=== PATIENT | female | born 1985 | race Caucasian/White ===

== ENCOUNTER 2018-05-27 13:14 | Emergency (ER) | payer SELFPAY ==
[2018-05-27 13:19] VITALS: BP 148/99; PULSE 85; RESP 16; TEMP 37; O2SAT 99
--- NOTE | 2018-05-27 13:44 | ED.GENADUL_ITS ---
Discharge Plan Discharge Details Chief Complaint: RashLesion Clinical Impression: Contact dermatitis Primary Care Provider: Dena Oliver ED Provider: Elise Quispe Disposition Patient Disposition: HOME Condition: Good Home Meds and New Rx's Prescriptions: New prednisone 20 mg tablet 40 mg PO DAILY Qty: 8 RF: 0 Continue levonorgestrel [Mirena] 1 EACH intrauterine device 1 ea IU DIRECTED RF: 0 Discharge Instructions Instructions: Dermatitis (ED) Additional Instructions: Keep hands clean. Try not to itch. You may use hydrocortisone cream to help with itch. Take steroids as prescribed. Please follow up with primary care. I have asked our md do resident urgent care to help arrange for follow up with dermatology, they will contact you regarding appointment. If you develop new/worsening symptoms please seek care urgently again. Referrals: Jose Cunningham MD [MD CONSULTING PHYSICIAN] - 2 weeks (For bilateral palm dermatitis) Medical Decision Making [facility] Narrative Medical decision making narrative: Patient presents today with chief complaint of rash to bilateral palms. On exam, she has a raised pale bump lesions on bilateral palms. This spares her webspaces, rash is not noted elsewhere. No surrounding erythema. No pain. The central area of the palms are clearly excoriated. Dr. Castano also evaluated the patient. He advised this is most consistent with contact dermatitis. Patient did use hydrocortisone cream which did help with symptomatic management although temporary. He advised oral systemic glucocorticoids. Patient will be placed on a burst therapy. Advised follow-up with primary care. Patient also is a patient of Dr. tai. Advise follow-up with him as well. I have asked her md do resident urgent care to help facilitate follow- up with Dr. Cunningham as soon as possible. We discussed new/worsening symptoms and when to seek care urgently once again. UPT was negative. All of her questions and concerns were addressed and she is in agreement with this plan. HPI - General Adult General Date/Time Provider Initiated Documentation: 05/27/18 13:27 . Limitations to Documentation: no limitations . Information obtained by: patient . HPI Narrative: Patient is a 33-year-old female presenting today with chief complaint of rash to bilateral palms. She reports that symptoms have been present for the past month. She reports that she has bumps that are quite itchy on the bilateral palms. Feels that these have been increasing in number. No fevers or chills. Denies any pain. Has not noted any discharge. Denies any difficulty with movement of the hands, no change in sensation. Patient was evaluated by her primary care when symptoms initially began it was advised that her symptoms are most consistent with scabies. Patient reports that she treated herself twice at home with the prescribed medication. Despite this, symptoms have persisted and increased. She denies rash in her mouth, on her feet or elsewhere on her body. States that otherwise she is feeling quite well. She denies any known new contacts. Does not wear gloves at work Related Data Home Medications Medication Instructions Recorded Confirmed levonorgestrel [Mirena] 1 ea IU DIRECTED 12/12/17 05/27/18 Previous Rx's Medication Instructions Recorded prednisone 40 mg PO DAILY #8 tab 05/27/18 Allergies Allergy/AdvReac Type Severity Reaction Status Date / Time tetanus and diphtheria Allergy Severe Trouble Unverified 05/27/18 13:23 toxoids breathing [tetanus & diphtheria toxoids] BCG (Bacillus Allergy Unknown ? REACTION Unverified 05/27/18 13:23 Calmette-Vadim) vacc [From BCG Jennifer Vaccine] hepatitis B virus vaccine Allergy Unknown ? REACTION Unverified 05/27/18 13:23 influenza virus vaccine, Allergy Unknown ? REACTION Unverified 05/27/18 13:23 specific [influenza virus vacc,specific] mumps immune globulin Allergy Unknown ? REACTION Unverified 05/27/18 13:23 Pertussis Vaccines Allergy Unverified 05/27/18 13:23 ADENOVIRUS VACC Allergy Intermediate ? KIND OF Uncoded 05/27/18 13:23 REACTION GUMWEED Allergy Unknown ? REACTION Uncoded 05/27/18 13:23 MENINGOCOCCAL VAC. Allergy Unknown ? REACTION Uncoded 05/27/18 13:23 MYCOBACTERIUM TUB Allergy Unknown PT. COULD Uncoded 05/27/18 13:23 NOT TELL ME WHAT REACTION SHE HAS PARATYPHOID VACC Allergy Unknown ? WHAT Uncoded 05/27/18 13:23 KIND OF A REACTION General Stated Complaint: RashLesion LUCI: 4 Review of Systems Constitutional Reports as per HPI, Denies chills and Denies fever(s) Respiratory Denies cough Musculoskeletal Reports as per HPI Integumentary/Breasts Reports as per HPI Neurologic Reports as per HPI PFSH Family History Mother Personal history of malignant neoplasm Father No problems noted. Grandfather Personal history of malignant neoplasm Heart disease Grandfather No problems noted. Grandmother Personal history of malignant neoplasm Grandmother No problems noted. Medical History History of hidradenitis suppurativa Social History Smoking/Tobacco Use Status: Current every day Surgical History Appendectomy (~04/1998) Excision, Lesion LUMPECTOMY (~01/2014) Tonsillectomy and adenoidectomy (~2001) Exam Const General: cooperative, healthy appearing, comfortable, no acute distress and well developed Nutritional Appearance: average body habitus Orientation: alert Eyes General: appearance normal, both eyes and all related structures Resp Effort & Inspection: normal respiratory effort and able to speak in complete sentences Skin General skin exam: dry skin, no erythema, excoriation(s) (Bilateral palms) and no petechiae Rashes: rash noted (Patient is noted to have pale raised bumps on the palm. They seem to be clustered. Isolated to the palm of the hand. No linear markings. None in the web spacings. No pain on palpation.) Wounds: no wounds Nails: normal Neuro General: alert and awake Cognition: normal cognition Speech: speech normal Gait: normal gait Extrem General: abnormal to inspection (Rashes as above) Psych Appearance: grossly normal Mental Status: mental status grossly normal Speech and Movement: speech and movement normal Mood: congruent mood Affect: normal affect Course Vital Signs Temperature 37 C 05/27/18 13:19 Pulse 85 05/27/18 13:19 Respiratory Rate 16 05/27/18 13:19 Blood Pressure 148/99 H 05/27/18 13:19 Pulse Oximetry 99 05/27/18 13:19 Temperature 37 C 05/27/18 13:19 Pulse 85 05/27/18 13:19 Respiratory Rate 16 05/27/18 13:19 Blood Pressure 148/99 H 05/27/18 13:19 Pulse Oximetry 99 05/27/18 13:19
[2018-05-27 14:25] VITALS: BP 148/99; PULSE 85; RESP 16; TEMP 37; O2SAT 99
--- NOTE | 2018-05-28 09:23 | PDOC.ERCMPRO ---
Care Management Progress Note 05/28-Elise HERRERA requested assistance with a dermatology appt as soon as possible, for dermatitis bilateral palms. Patient has seen Dr. Cunningham in [place] before. Called Dr. Cunningham's office and spoke with Mary COTE. Mary requested the note to be faxed (for which it was) and stated she was going to try and get Jessie in before the end of the week. Dr. Cunningham is off for several weeks after Saturday. Mary stated she thought it would be mid afternoon before she would call back. Mary will either ask for this CM or Vika Ivey CM (signed off to Vika) with update. If not, will have to try and get patient into [facility] [place] [place] dermatology.
--- NOTE | 2018-05-28 09:30 | CMPROGNOTE_ITS ---
Care Management Progress Note 05/28-Elise HERRERA requested assistance with a dermatology appt as soon as possible, for dermatitis bilateral palms. Patient has seen Dr. Cunningham in [place] before. Called Dr. Cunningham's office and spoke with Mary COTE. Mary requested the note to be faxed (for which it was) and stated she was going to try and get Jessie in before the end of the week. Dr. Cunningham is off for several weeks after Saturday. Mary stated she thought it would be mid afternoon before she would call back. Mary will either ask for this CM or Vika Ivey CM (signed off to Vika) with update. If not, will have to try and get patient into [facility] dermatology.
== END 2018-05-27 14:21 | disposition home or self-care (01) ==
PROVIDERS: Emergency Provider Physician Assistant; PCP Family Medicine
DX: L25.9 Unspecified contact dermatitis, unspecified cause (principal)
CPT/HCPCS: 81025; 99283

== ENCOUNTER 2018-06-13 09:30 | Emergency (ER) | payer SELFPAY ==
[2018-06-13 09:35] VITALS: BP 145/82; PULSE 87; RESP 14; TEMP 36.8; O2SAT 98
--- NOTE | 2018-06-13 10:30 | W.ED.GENAD ---
Discharge Plan Disposition Patient Disposition: HOME Condition: Stable Discharge Details Chief Complaint: RashLesion Clinical Impression: Contact dermatitis Primary Care Provider: Dena Oliver ED Provider: Tim Corey Home Meds and New Rx's Prescriptions: New prednisone 20 mg tablet 20 mg PO DAILY Qty: 15 RF: 0 Continue levonorgestrel [Mirena] 1 EACH intrauterine device 1 ea IU DIRECTED RF: 0 Discharge Instructions Instructions: Dermatitis (ED) Additional Instructions: Feel free to return to the emergency department for new or worsening symptoms including rapid spread of your rash, fever chills, or any further concerns. Otherwise care management will attempt to get you a sooner appointment with dermatology. Referrals: Jose Cunningham MD [MD CONSULTING PHYSICIAN] - 2 weeks Discharge Data Discharge Date/Time-TO BE ENTERED AT DEPARTURE: 06/13/18 10:47 Medical Decision Making Patient presenting to the emergency department for bilateral itching rash and peeling to the palms of her hands and somewhat to the dorsal aspect. Patient was initially seen at her primary care office who placed her on medication for suspect of scabies but patient states that this did not help at all and that no one else in the home has similar symptoms. Patient was then seen here in the emergency department a little bit more than 2 weeks ago and was diagnosed with contact dermatitis and placed upon prednisone. Patient states that this initially helped but she was only given a 4 day burst and then the rash returned and continue to be the same. Patient denies any new soaps lotions medications supplements. Physical exam does show raised vesicles on the palmar and dorsal aspect of bilateral hands with some peeling to the palmar aspect of the hand. Patient has slight excoriation on the left upper arm which she states feels more just like dry skin but otherwise has no other physical exam findings. Patient is afebrile and has no systemic symptoms. After review of previous note there was concern for contact dermatitis which given the isolation just to the hands thoroughly discussed with patient any soaps lotions cleaning supplies anything that may be exacerbating this. Patient states that she has previously seen Dr. Cunningham in [place] and they tried to get her an appointment with him after the last emergency visit but was unable to obtain an appointment there. She was referred to [facility]. Patient has been trying to get into dermatology but does not have an appointment until mid to late June. Given that prednisone did help patient I do feel that putting patient on a longer prednisone taper would be beneficial and having care management attempt to get patient a sooner appointment with dermatology for reassessment. After discussion of diagnosis and informing patient to avoid any substance contact even if it seems mild patient agrees with plan of care and states no further needs questions or concerns at this time.. HPI General Mode of arrival: ambulatory. Date/Time Provider Initiated Documentation: 06/13/18 10:05. Limitations to Documentation: no limitations. Information obtained by: patient, RN notes reviewed and old records reviewed. History of Present Illness 33 year old F presents to the emergency department with the chief complaint of Rash on hands, described as moderate, Quality is described as burning and other (itching), and is localized to the upper extremity (bilateral hands). Patient reports no radiation. Patient started experiencing this month(s) (2) and it has been constant. Medication improves symptom(s), (steriods) No exacerbating factors reported . Patient notes no other symptoms.. Patient did receive the following treatments prior to arrival, none Related Data Home Medications Medication Instructions Recorded Confirmed levonorgestrel [Mirena] 1 ea IU DIRECTED 12/12/17 06/13/18 Previous Rx's Medication Instructions Recorded prednisone 20 mg PO DAILY #15 tab 06/13/18 Allergies Allergy/AdvReac Type Severity Reaction Status Date / Time tetanus and diphtheria Allergy Severe Trouble Unverified 06/13/18 09:40 toxoids breathing [tetanus & diphtheria toxoids] BCG (Bacillus Allergy Unknown ? REACTION Unverified 06/13/18 09:40 Calmette-Vadim) vacc [From BCG Jennifer Vaccine] hepatitis B virus vaccine Allergy Unknown ? REACTION Unverified 06/13/18 09:40 influenza virus vaccine, Allergy Unknown ? REACTION Unverified 06/13/18 09:40 specific [influenza virus vacc,specific] mumps immune globulin Allergy Unknown ? REACTION Unverified 06/13/18 09:40 Pertussis Vaccines Allergy Unverified 06/13/18 09:40 ADENOVIRUS VACC Allergy Intermediate ? KIND OF Uncoded 06/13/18 09:40 REACTION GUMWEED Allergy Unknown ? REACTION Uncoded 06/13/18 09:40 MENINGOCOCCAL VAC. Allergy Unknown ? REACTION Uncoded 06/13/18 09:40 MYCOBACTERIUM TUB Allergy Unknown PT. COULD Uncoded 06/13/18 09:40 NOT TELL ME WHAT REACTION SHE HAS PARATYPHOID VACC Allergy Unknown ? WHAT Uncoded 06/13/18 09:40 KIND OF A REACTION General Stated Complaint: RashLesion LUCI: 5 Review of Systems Constitutional Denies body ache(s), Denies chills and Denies fever(s) Eyes Patient Denies itchy eyes Cardiovascular Denies chest pain and Denies dyspnea Respiratory Denies dyspnea Gastrointestinal Denies abdominal pain, Denies nausea and Denies vomiting Integumentary/Breasts Reports as per HPI and Reports rash Neurologic Denies sensory deficit Allergic/Immunologic Denies GI upset with certain foods and Denies itchy eyes PFSH Family History Mother Personal history of malignant neoplasm Father No problems noted. Grandfather Personal history of malignant neoplasm Heart disease Grandfather No problems noted. Grandmother Personal history of malignant neoplasm Grandmother No problems noted. Medical History History of hidradenitis suppurativa Social History Smoking/Tobacco Use Status: Current every day Surgical History Appendectomy (~04/1998) Excision, Lesion LUMPECTOMY (~01/2014) Tonsillectomy and adenoidectomy (~2001) Exam Const General: cooperative, no acute distress and not ill appearing Orientation: alert, awake and oriented x3 HENMT Mouth: moist mucous membranes Resp Effort & Inspection: normal respiratory effort, able to speak in complete sentences and no respiratory distress Cardio Rate: regular rate Rhythm: regular rhythm Skin General skin exam: skin not dry, no petechiae and no purpura Rashes: rashes noted Neuro General: alert, awake, oriented x3, moves all extremities and no focal motor deficits Sensory Exam: no sensory deficits noted Course Vital Signs Temperature 36.8 C 06/13/18 09:35 Pulse 87 06/13/18 09:35 Respiratory Rate 14 06/13/18 09:35 Blood Pressure 145/82 H 06/13/18 09:35 Pulse Oximetry 98 06/13/18 09:35 Temperature 36.8 C 06/13/18 09:35 Pulse 87 06/13/18 09:35 Respiratory Rate 14 06/13/18 09:35 Blood Pressure 145/82 H 06/13/18 09:35 Pulse Oximetry 98 06/13/18 09:35
[2018-06-13] MEDS: predniSONE 20 MG TAB 60 MG PO (10:42)
--- NOTE | 2018-06-13 12:13 | PDOC.ERCMPRO ---
Care Management Progress Note 06/13/18-Pt seen today for hand rash by KENYETTA Hill. CM contacted Dr. lawson's office. His secretary administrative assistant states he is on vacation until 06/23/18. She will have hime review the referral and notes I have faxed her upon his return and put Pt on the cancellation list.
== END 2018-06-13 10:47 | disposition home or self-care (01) ==
PROVIDERS: Emergency Provider Nurse Practitioner Family; PCP Family Medicine
DX: L25.9 Unspecified contact dermatitis, unspecified cause (principal)
CPT/HCPCS: 99283; J7512

== ENCOUNTER 2018-10-10 13:19 | Outpatient (REF) | payer OTHER, SELFPAY ==
--- NOTE | 2018-10-10 12:00 | PAPFT_PTH ---
PATIENT: Jessie Dubon LOC: [facility] U#:[id number] AGE/SX: 33/F ROOM: RE10/10/[address]: Dean Oneill MD : 1985 BED: DIS: 10/10/2018 SPEC #: [id number] RECD: 10/10/18 18:06 STATUS: MARILUZ REMagdalena #: [id number] MEHRAN: 10/10/18 12:[address]: Dean Oneill DEPT: [facility] Cytology RECD BY: Noemí Mcdowell ENTERED: 10/10/18 18:07 SP TYPE: PAPFT OTHR DR: Dena Oliver MD Tissues: 1 - CX/ENDOCX FOR PAP SMEARS Procedures: PAP THIN PREP/UVM Screening HPV DNA PROBE Comments: [id number]
[2018-10-15 10:46] LABS: Chlamydia Result Negative; GC Result Negative; Specimen Description CERVIX
== END 2018-10-10 13:39 ==
LOC: LBN 13:19
PROVIDERS: PCP Family Medicine; Visit Provider Obstetrics & Gynecology
DX: Z11.3 Encounter for screening for infections with a predominantly sexual mode of transmission (principal); Z30.9 Encounter for contraceptive management, unspecified; Z12.4 Encounter for screening for malignant neoplasm of cervix
CPT/HCPCS: 87491; 87591; 88142; 87624

== ENCOUNTER 2018-11-28 00:26 | Outpatient (CLI) | payer OTHER, SELFPAY ==
--- NOTE | 2018-11-28 08:59 | DI.MAMMO_ITS ---
SYMPTOMS/DIAGNOSIS: SCREENING, Z12.31, FAMILY H/O BREAST CA, Z80.3 MAMMOGRAMS: Mammograms were interpreted according to the usual protocol including computer analysis with CAD system, tomosynthesis and C view imaging. This is a baseline examination. There are no priors for comparison. No suspicious masses or microcalcifications are seen. The skin and axillae are unremarkable. IMPRESSION: No evidence for malignancy. Followup according to ACR/ACS guidelines. Category 1. Breast density C. MQSA ASSESSMENT OF FINDINGS: Negative. Category 1. Patient will receive a letter notifying them of these results. Bi-RADS category C. The breasts are heterogeneously dense, which may obscure small masses.
== END 2018-11-28 00:46 ==
PROVIDERS: PCP Family Medicine; Visit Provider Obstetrics & Gynecology
DX: Z12.31 Encounter for screening mammogram for malignant neoplasm of breast (principal); Z80.3 Family history of malignant neoplasm of breast
CPT/HCPCS: 77063; 77067

== ENCOUNTER 2020-04-15 13:29 | Outpatient (CLI) | payer MEDICAID, SELFPAY ==
[2020-04-19 21:51] LABS: SARS-CoV-2 RNA Undetected (Undetected); SARS-CoV-2 Specimen Source Nasopharynx
== END 2020-04-15 13:49 ==
PROVIDERS: PCP Emergency Medicine; Visit Provider Emergency Medicine
DX: Z11.59 Encounter for screening for other viral diseases (principal)
CPT/HCPCS: U0003

== ENCOUNTER 2020-11-14 11:05 | Outpatient (REF) | payer MEDICAID, SELFPAY ==
--- NOTE | 2020-11-14 10:30 | PAPFT_PTH ---
PATIENT: Jessie Dubon LOC: [facility] U#:[id number] AGE/SX: 35/F ROOM: RE11/14/[address]: Andressa Nevarez MD : 1985 BED: DIS: 11/14/2020 SPEC #: [id number] RECD: 11/14/20 13:12 STATUS: MARILUZ REMagdalena #: [id number] MEHRAN: 11/14/20 10:[address]: Andressa Nevarez DEPT: [facility] Cytology RECD BY: Noemí Mcdowell ENTERED: 11/14/20 13:12 SP TYPE: PAPFT OTHR DR: Wali Arreola, DO Tissues: 1 - CX/ENDOCX FOR PAP SMEARS Procedures: PAP THIN PREP/UVM Screening HPV DNA PROBE Comments: [id number]
== END 2020-11-14 11:06 | disposition home or self-care (01) ==
LOC: LBN 11:05
PROVIDERS: PCP Emergency Medicine; Visit Provider Obstetrics & Gynecology
DX: N30.10 Interstitial cystitis (chronic) without hematuria (principal); Z12.4 Encounter for screening for malignant neoplasm of cervix; Z11.51 Encounter for screening for human papillomavirus (HPV); Z87.42 Personal history of other diseases of the female genital tract
CPT/HCPCS: 88142; 87086; 87624

== ENCOUNTER 2020-11-23 01:11 | Outpatient (CLI) | payer MEDICAID, SELFPAY ==
--- NOTE | 2020-11-23 07:30 | DI.US_ITS ---
EXAM: US PELVIS TRANSVAGINAL CLINICAL HISTORY: pelvic pain,R10.2. TECHNIQUE: Transabdominal and transvaginal pelvic ultrasound was performed using standard protocol. COMPARISON: No exams were available for comparison FINDINGS: KIDNEYS: Kidneys are symmetric in size. No evidence of renal calculi. No evidence of hydronephrosis. No renal mass or cyst identified. UTERUS: Position: Anteverted. Size: 7.5 long by 3.7 AP by 5.0 transverse cm Endometrium: 0.4 cm. Normal for patient's menstrual status. There is an IUD which is in good position . Myometrium: Unremarkable. Cervix: Unremarkable. OVARIES: Right: 2.1 x 1.5 x 1.7 cm Cyst or mass: Small functional cysts are present. Left: 2.6 x 1.9 x 1.9 cm Cyst or mass: 1.7 x 1.4 x 1.4 cm functional cyst. DOPPLER: Color: Symmetric and uniform flow to both ovaries. No hyperemia. Duplex: Normal ovarian arterial waveforms visualized. CUL-DE-SAC: Free fluid: Small amount of free fluid in the cul-de-sac. Other: None. IMPRESSION: 1. Normal sonographic appearance of the kidneys. 2. Normal-appearing uterus with endometrial stripe within normal limits. IUD is in good position. 3. Unremarkable bilateral ovaries. 1.7 cm functional left ovarian cyst. DATA REPOSITORY:
== END 2020-11-23 01:31 ==
PROVIDERS: PCP Emergency Medicine; Visit Provider Emergency Medicine
DX: R10.2 Pelvic and perineal pain (principal); Z97.5 Presence of (intrauterine) contraceptive device; N83.202 Unspecified ovarian cyst, left side
CPT/HCPCS: 76830; 76856

== ENCOUNTER 2021-08-27 21:59 | Emergency (ER) | payer MEDICAID, SELFPAY ==
[2021-08-27 22:02] VITALS: BP 162/94; PULSE 89; RESP 18; TEMP 36.5; O2SAT 99
--- NOTE | 2021-08-27 22:08 | ED.GENADUL_ITS ---
Discharge Plan Disposition Patient Disposition: HOME Condition: Good Discharge Details Clinical Impression: Rash, Contact dermatitis Primary Care Provider: Wali Arreola ED Provider: Torsten Da Silva Home Meds and New Rx's Prescriptions: New prednisone 50 MG tablet 50 mg PO DAILY Qty: 5 RF: 0 Continued econazole 1 % cream 1 applic TP DAILY Qty: 15 RF: 0 amitriptyline 10 mg tablet 10 mg PO QHS Qty: 60 RF: 0 Mirena 1 EACH intrauterine device 1 ea IU DIRECTED RF: 0 Discharge Instructions Instructions: Dermatitis (ED) Additional Instructions: At this time your exam shows evidence of mild contact dermatitis. Please take the prednisone as directed. It is been sent to your pharmacy on file. Please also take mzkq-qmi-inveyze loratadine 10 mg 1 tablet daily for the next 3 to 5 days until your symptoms resolve. Please also continue to take your 25 mg of Benadryl every 6-8 hours. Monitor your symptoms closely and look for any potential causative agents for your symptoms. If you notice any worsening of your symptoms, or any new symptoms such as vomiting, diarrhea, fever, chills, shortness of breath, chest pain, numbness, weakness, or fainting , please return immediately to the emergency department for reevaluation. Please follow up with your primary care provider as soon as possible for reassessment and reevaluation. As always, it was a pleasure participating in your medical care today. Referrals: Wali Arreola, [Primary Care Provider] - Medical Decision Making 36-year-old female with a past medical history of multiple reactions to previous vaccines but otherwise no significant other medical history presents today for evaluation of rash. The patient states that for the last 3 to 4 days she has had a mild rash on her neck and ears. It has been itchy in nature. She has been taking Benadryl and using wamg-kzk-lwaigox cortisone 10 cream, this is slightly improved the symptoms but not resolved them. She is uncertain as to the cause, but denies any new lotions, soaps, perfumes, bed sheets, detergents, washing products, food changes, or pets. She is uncertain as to what is causing this. She denies any fever or chills. No mucosal or oral lesions. No other complaints time. No other modifying factors. Exam demonstrates mildly erythematous rash on the back of the neck, easily blanchable. Mild inflammation/irritation of the ears as well. There are 2 earrings, 1 in each ear. Patient states that she has had these in there for forever. Symptoms appear inconsistent with tinea capitis. It does appear sli ghtly concerning for mild contact dermatitis. We will give oral prednisone, recommend continued Benadryl and loratadine. The patient's rash worsens recommend reassessment as there may be a less likely fungal component. I have extensively reviewed the treatment plan and discharge instructions with the patient. I have addressed all patient concerns at this time. The patient was made aware of what symptoms to monitor for that would warrant a return to the emergency department. Discussed the plan with the patient, they demonstrate verbal understanding and agreement with our assessment and plan at this time. The documentation in this chart was dictated using [employer] dictation software. Please excuse any dictation errors. HPI General Date/Time Provider Initiated Documentation: 08/27/21 22:00 . HPI Narrative: 36-year-old female with a past medical history of multiple reactions to previous vaccines but otherwise no significant other medical history presents today for evaluation of rash. The patient states that for the last 3 to 4 days she has had a mild rash on her neck and ears. It has been itchy in nature. She has been taking Benadryl and using mbzm-riq-gmhxdjw cortisone 10 cream, this is slightly improved the symptoms but not resolved them. She is uncertain as to the cause, but denies any new lotions, soaps, perfumes, bed sheets, detergents, washing products, food changes, or pets. She is uncertain as to what is causing this. She denies any fever or chills. No mucosal or oral lesions. No other complaints time. No other modifying factors. Related Data Home Medications Medication Instructions Recorded Confirmed Mirena 1 ea IU DIRECTED 12/12/17 05/04/20 econazole 1 % topical cream 1 applic TP DAILY #15 gm 02/19/20 05/04/20 amitriptyline 10 mg tablet 10 mg PO QHS #60 tab 11/14/20 11/14/20 prednisone 50 mg PO DAILY #5 tab 08/27/21 Previous Rx's Medication Instructions Recorded econazole 1 % topical cream 1 applic TP DAILY #15 gm 02/19/20 amitriptyline 10 mg tablet 10 mg PO QHS #60 tab 11/14/20 prednisone 50 mg PO DAILY #5 tab 08/27/21 Allergies Allergy/AdvReac Type Severity Reaction Status Date / Time tetanus and diphtheria Allergy Severe Trouble Verified 11/08/20 14:52 toxoids breathing [tetanus & diphtheria toxoids] BCG (Bacillus Allergy Unknown ? REACTION Verified 11/08/20 14:52 Calmet[place]-Vadim) vacc [From BCG [place] Vaccine] hepatitis B virus vaccine Allergy Unknown ? REACTION Verified 11/08/20 14:52 influenza virus vaccine, Allergy Unknown ? REACTION Verified 11/08/20 14:52 specific [influenza virus vacc,specific] mumps immune globulin Allergy Unknown ? REACTION Verified 11/08/20 14:52 Pertussis Vaccines Allergy Verified 11/08/20 14:52 ADENOVIRUS VACC Allergy Intermediate ? KIND OF Uncoded 11/08/20 14:52 REACTION GUMWEED Allergy Unknown ? REACTION Uncoded 11/08/20 14:52 MENINGOCOCCAL VAC. Allergy Unknown ? REACTION Uncoded 11/08/20 14:52 MYCOBACTERIUM TUB Allergy Unknown PT. COULD Uncoded 11/08/20 14:52 NOT TELL ME WHAT REACTION SHE HAS PARATYPHOID VACC Allergy Unknown ? WHAT Uncoded 11/08/20 14:52 KIND OF A REACTION General LUCI: 5 Review of Systems All systems reviewed & are unremarkable except as noted in HPI and below PFSH Active Problem List Rash (Acute) Contact dermatitis (Acute) Hydradenitis (Acute) Interstitial cystitis (Acute) Pelvic pain (Acute) Plantar wart of right foot (Acute) Callus of foot (Acute) Bleeding hemorrhoid (Acute) Family history of breast cancer in first degree relative (Acute) Abnormal Pap smear of cervix (Acute) Benign neoplasm (Acute 01/25/14) Depression (Acute) Encounter for insertion of intrauterine contraceptive device (Acute 04/01/13) Smoker (Acute 12/28/13) False labor (Active 02/11/13) Vaginal delivery (Active 02/18/13) Medical History History of hidradenitis suppurativa Surgical History Appendectomy (~04/1998) Excision, Lesion Groin cyst LUMPECTOMY (~01/2014) FROM TONGUE Tonsillectomy and adenoidectomy (~2001) Family History Mother Personal history of malignant neoplasm BREAST/CERVICAL Cancer Father No problems noted. Grandfather Personal history of malignant neoplasm BLADDER/SKIN Heart disease Grandfather No problems noted. Grandmother Personal history of malignant neoplasm BREAST Grandmother No problems noted. Other Family history of breast cancer in first degree relative Social History Smoking/Tobacco Use Status: Current every day Quit status: not considering quitting Smoking risk assessment performed?: Yes Alcohol Intake: never Drug use: Never Counseling given: No Do you feel safe at home: Yes Do you feel safe in your relationship?: Yes Female Reproductive History Menstrual Age of Menarche: 14 control method: progestin IUCD (New Mirena IUD inserted today. LOT#[id number] EXP JANUARY/2021) History History 1 Para 1 Hx # Term Pregnancies Multiple births Hx # Pregnancies Ectopic pregnancies AB induced Hx Number of Living Children AB spontaneous Exam Narrative Exam Narrative: 1.Const: Well-nourished, Well-developed, appearing stated age 2.Eyes: PERRL, no conjunctival injection, and symmetrical lids. 3.ENT: Atraumatic external nose and ears. Moist MM. Neck: Symmetric, trachea midline, No thyromegaly. 4.CVS: +S1/S2, No murmurs or gallops. Peripheral pulses 2+ and equal in all extremities. Brisk capillary refill in all extremities. 5.RESP: Unlabored respiratory effort. Clear to auscultation bilaterally. No wheezes rales or rhonchi 6.GI: Soft, Nontender/Nondistended, No hepatosplenomegaly. No guarding or rebound. 7.MSK: Normocephalic/Atraumatic, Extremities w/o deformity or ttp No cyanosis or clubbing, Normal movement of all extremities 8.Skin: Warm, Dry. Patient demonstrates very mild erythematous slightly irritated rash on the upper neck at the base of the scalp, and mild inflammation of the ears bilaterally. No significant tenderness. No exudate, no warmth to suggest cellulitis or infection. Symptoms appear inconsistent with tinea capitis. It appears more similar to a mild contact dermatitis of unknown etiology. Negative Nikolsky sign. No large vesicles or bulla. No palpable purpura. No oral lesions. No mucosal lesions. No evidence of severe cellulitis. No evidence of vaccine preventable rash. 9.Neuro: executive staff assistant II-XII grossly intact. Sensation grossly intact, no focal neurologic deficits. 10.Psych: (AAO) x3. Appropriate mood and affect
[2021-08-27] MEDS: predniSONE 20 MG TAB 60 MG PO (22:13)
== END 2021-08-27 22:14 | disposition home or self-care (01) ==
PROVIDERS: Emergency Provider Student in an Organized Health Care Education/Training Program; PCP Emergency Medicine
DX: L25.8 Unspecified contact dermatitis due to other agents (principal); L29.8 Other pruritus
CPT/HCPCS: 99283; J7512

== ENCOUNTER 2022-10-07 12:08 | Emergency (ER) | payer MEDICAID, SELFPAY ==
[2022-10-07 12:12] VITALS: BP 158/88; PULSE 95; RESP 18; TEMP 37.1; O2SAT 98
--- NOTE | 2022-10-07 12:39 | W.ED.GENAD ---
Discharge Plan Disposition Patient Disposition: Home Condition: Stable Discharge Details Clinical Impression: Abscess Primary Care Provider: Terrence Moss ED Provider: Noemí Tolbert Home Meds and New Rx's Prescriptions: New doxycycline monohydrate 100 mg tablet 100 mg PO BID Qty: 20 0RF Continued multivitamin with iron [Daily Multiple Vitamins/Iron] Tablet 1 tab PO DAILY Mirena 1 EACH intrauterine device 1 ea IU DIRECTED Discharge Instructions Instructions: Abscess (ED) Additional Instructions: warm compresses antibiotics as prescribed Follow-up with surgery Return earlier should you have fever, chills, spreading redness, or fluctuant abscess to the groin region Referrals: Zac Archer MD [MD CONSULTING PHYSICIAN] - Discharge Data Discharge Date/Time-TO BE ENTERED AT DEPARTURE: 10/07/22 13:05 Medical Decision Making This 37-year-old female presents with abscess in the pelvic region which started approximately 3 days ago and has been draining intermittently Denies any fever or chills states that this has been going on for approximately 3 weeks There is a indurated approximately half inch abscess noted in the perineal region There is no fluctuance and no overlying erythema, I think the risk associated with pain outweighs the benefit of incision and drainage at this time and I think starting her on antibiotics and referring to surgery in the outpatient setting is in the patient's best interest She is placed on emergent referral She will apply warm compresses and be placed on doxycycline She denies any chance of She is discharged home afebrile nontoxic in no acute distress Medical Records Medical records reviewed: Yes I reviewed the patient's medical records. HPI General Date/Time Provider Initiated Documentation: 10/07/22 12:27. HPI Narrative: This 37-year-old female presents with report of abscess in the pelvic region. She states this started 3 weeks ago. She states the pain is getting worse. She states that there has been a little bit of drainage over the course past few days. She denies any fever or chills. She has a history of hidradenitis and has had numerous incision and drainage of abscesses in the past. Denies any history of illicit drug use or diabetes. Has not been on antibiotics for this episode. Related Data Home Medications Medication Instructions Recorded Confirmed levonorgestrel 20 mcg/24 hours (8 1 ea intra-articular DIRECTED 03/22/18 01/15/23 yrs) 52 mg intrauterine device (Mirena) multivitamin with iron (Daily 1 tab PO DAILY 04/27/22 10/07/22 Multiple Vitamins with Iron tablet) doxycycline monohydrate 100 mg 100 mg PO BID #20 tabs 10/07/22 tablet Previous Rx's Medication Instructions Recorded doxycycline monohydrate 100 mg 100 mg PO BID #20 tabs 10/07/22 tablet Allergies Allergy/AdvReac Type Severity Reaction Status Date / Time tetanus and diphtheria Allergy Severe Trouble Verified 10/07/22 12:16 toxoids breathing [tetanus & diphtheria toxoids] BCG (Bacillus Allergy Unknown ? REACTION Verified 10/07/22 12:16 Calmet[place]-Vadim) vacc [From BCG [place] Vaccine] hepatitis B virus vaccine Allergy Unknown ? REACTION Verified 10/07/22 12:16 influenza virus vaccine, Allergy Unknown ? REACTION Verified 10/07/22 12:16 specific [influenza virus vacc,specific] mumps immune globulin Allergy Unknown ? REACTION Verified 10/07/22 12:16 Pertussis Vaccines Allergy Verified 10/07/22 12:16 ADENOVIRUS VACC Allergy Intermediate ? KIND OF Uncoded 10/07/22 12:16 REACTION GUMWEED Allergy Unknown ? REACTION Uncoded 10/07/22 12:16 MENINGOCOCCAL VAC. Allergy Unknown ? REACTION Uncoded 10/07/22 12:16 MYCOBACTERIUM TUB Allergy Unknown PT. COULD Uncoded 10/07/22 12:16 NOT TELL ME WHAT REACTION SHE HAS PARATYPHOID VACC Allergy Unknown ? 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 vaginal delivery - compound presentation- Dr. Hema Keyes 02/18/2013. Surgical History Appendectomy (~04/1998) Excision, Lesion Groin cyst LUMPECTOMY (~01/2014) FROM TONGUE Tonsillectomy and adenoidectomy (~2001) Family History Mother Personal history of malignant neoplasm BREAST/CERVICAL Cancer Father No problems noted. Grandfather Personal history of malignant neoplasm BLADDER/SKIN Heart disease Grandfather No problems noted. Grandmother Personal history of malignant neoplasm BREAST Grandmother No problems noted. Other Family history of breast cancer in first degree relative Social History Smoking/Tobacco Use Status: Current every day Quit status: not considering quitting Smoking risk assessment performed?: Yes Alcohol Intake: never Drug use: Never Substance use type: does not use Counseling given: No Current gender identity: female Do you feel safe at home: Yes Do you feel safe in your relationship?: Yes Female Reproductive History Menstrual Age of Menarche: 14 control method: progestin IUCD History History 1 Para 1 Hx # Term Pregnancies Multiple births Hx # Pregnancies Ectopic pregnancies AB induced Hx Number of Living Children AB spontaneous Exam Const General: cooperative, comfortable and no acute distress Female genitals images: 1. Approximately half inch abscess noted Induration without fluctuance or cellulitis Course Vital Signs Vital signs: Vital Signs Temperature 37.1 C 10/07/22 12:12 Pulse 95 H 10/07/22 12:12 Respiratory Rate 18 10/07/22 12:12 Blood Pressure 158/88 H 10/07/22 12:12 Pulse Oximetry 98 10/07/22 12:12 Temperature 37.1 C 10/07/22 12:12 Pulse 95 H 10/07/22 12:12 Respiratory Rate 18 10/07/22 12:12 Respiratory Effort 10/07/22 12:15 Blood Pressure 158/88 H 10/07/22 12:12 Blood Pressure Position Sitting 10/07/22 12:12 Pulse Oximetry 98 10/07/22 12:12 Oxygen Delivery Method Room Air 10/07/22 12:12 Oxygen Flow Rate 0 10/07/22 12:12 Pain Level 7 10/07/22 12:12 PAWSS Have you Been Recently Intoxicated or Drunk Within the Last 30 days?: Yes Have you Ever Experienced Previous Episodes of Alcohol Withdrawal?: No Have you ever Experienced Withdrawal Seizures?: No Have you ever Experienced Delirium Tremens(DT)s?: No Have you ever undergone Alcohol Rehabilitation Treatment (i.e, inpt ot outpatient treatment programs)?: No Have you ever Experienced Blackouts?: No Have you ever Combined Alcohol with other Downers within the last 90 days?: No Have you ever Combined Alcohol with any other Substance of Abuse during the last 90 days?: No Positive Blood Alcohol level on Presentation? [PCS.BAL]: No Evidence of Increased Autonomic Activity (i.e. HR>120, tremor, sweating, agitation, nausea)?: No Result: 1
--- NOTE | 2022-10-07 18:12 | NUR.NOTE ---
Nursing Note: referral to cm for surgery consult.
== END 2022-10-07 13:05 | disposition home or self-care (01) ==
PROVIDERS: Emergency Provider Physician Assistant; PCP Nurse Practitioner Family
DX: L02.215 Cutaneous abscess of perineum (principal)
CPT/HCPCS: 99283; 99284

== ENCOUNTER 2023-09-03 03:47 | Outpatient (CLI) | payer MEDICAID, SELFPAY ==
[2023-09-03 16:52] LABS: Abs Immature Grans 0.04 10^3/uL (0.0-0.06); Absolute Eosinophil Count 0.31 10^3/uL (0.0-0.7); Absolute Lymphocyte Count 3.38 10^3/uL (1.2-3.4); Absolute Monocyte Count 0.67 10^3/uL (0.1-0.8); Absolute Neutrophil Count 6.77 10^3/uL (1.2-6.7); Basophils % 1.2; Eosinophils % 2.7; HCT 38.4 % (36.0-46.0); HGB 13.2 g/dL (11.2-15.7); Immature Grans % 0.4; Lymphocytes % 29.9; MCH 34.8 pg (27.0-33.0); MCHC 34.4 % (32.0-36.0); MCV 101 fL (80-95); MPV 10.3 fL (8.0-11.0); Monocytes % 5.9; Neutrophils % 59.9; Platelet Count 249 10^3/uL (130-400); RBC 3.79 10^6/uL (3.93-5.22); RDW 12.3 % (11.7-14.6); RDW-SD 45.9 fL
[2023-09-03 16:54] LABS: Absolute Basophil Count 0.14 10^3/uL (0.0-0.2)
== END 2023-09-03 03:48 | disposition home or self-care (01) ==
LOC: LBO 03:48
PROVIDERS: PCP Nurse Practitioner Family; Visit Provider Obstetrics & Gynecology
DX: Z01.818 Encounter for other preprocedural examination (principal)
CPT/HCPCS: 36415; 86850; 86900; 86901; 85014; 85018; 85025

== ENCOUNTER 2023-09-04 08:18 | Day surgery (SDC) | payer MEDICAID, SELFPAY ==
[2023-09-04] VITALS (10 sets, daily range): BP systolic 107–152; BP diastolic 61–100; PULSE 68–84; RESP 16–19; TEMP 36.3–36.9; O2SAT 95–99; BMI 28.0
[2023-09-04] MEDS: Lactated Ringers 1,000 ML 125 ML IV (09:11)
--- NOTE | 2023-09-04 11:12 | ANES.PREOP_ITS ---
General Info Date of Service Date Performed: 09/04/23 Height: 5 ft 1 in Weight: 67.5 kg Body Mass Index (BMI): 28.0 Surgical Procedure: Operation Date: 09/04/23 10:40 Proposed Procedure Side Surgeon p Salpingectomy Laparoscopic Bilateral Shawna No MD Meds Allergies and Home Medications Allergies Allergy/AdvReac Type Severity Reaction Status Date / Time tetanus and diphtheria Allergy Severe Trouble Verified 09/04/23 08:42 toxoids breathing [tetanus & diphtheria toxoids] BCG (Bacillus Allergy Unknown ? REACTION Verified 09/04/23 08:42 Calmette-Vadim) vacc [From BCG [place] Vaccine] hepatitis B virus vaccine Allergy Unknown ? REACTION Verified 09/04/23 08:42 ibuprofen Allergy Unknown other Verified 09/04/23 08:42 influenza virus vaccine, Allergy Unknown ? REACTION Verified 09/04/23 08:42 specific [influenza virus vacc,specific] mumps immune globulin Allergy Unknown ? REACTION Verified 09/04/23 08:42 Pertussis Vaccines Allergy Verified 09/04/23 08:42 Home Medication Medication Instructions Recorded levonorgestrel 21 mcg/24 hours (8 1 ea intra-articular DIRECTED 12/12/17 yrs) 52 mg intrauterine device (Mirena) Current Visit Medications: Current Medications Generic Name Dose Route Start Last Admin Trade Name Freq PRN Reason Stop Dose Admin Ringer's Solution 1,000 mls @ 125 mls/hr 09/04/23 06:00 09/04/23 09:11 IV 10/03/23 23:59 125 mls/hr INFUSION TORRIE Administration IV Miscellaneous Supplies 1 each 09/04/23 06:00 Iv Access IV 10/03/23 23:59 DIRECTED TORRIE Sodium Chloride 0 ml 09/04/23 06:00 Normal Saline Flush 10 Ml Syr IV 10/03/23 23:59 PRN PRN Sodium Chloride 0 ml 09/04/23 06:00 Normal Saline 10 Ml Vial IJ 10/03/23 23:59 DIRECTED PRN Sterile Water 0 ml 09/04/23 06:00 Water,Injection,Sterile 10 Ml Vial IJ 10/03/23 23:59 DIRECTED PRN PFSH Active Problems Active Problems: Problem Status Onset Code Smoker 12/28/13 F17.200 Medical History Medical History IUD surveillance Mirena IUD placed 10/10/18. 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 vaginal delivery - compound presentation- Dr. Hema Keyes 02/18/2013. Surgical History Surgical History Tonsillectomy and adenoidectomy (~2001) LUMPECTOMY (~01/2014) FROM TONGUE Excision, Lesion Groin cyst Appendectomy (~04/1998) Tobacco Smoking/Tobacco Use Status: Current every day Tobacco Type: cigarettes Smoking packs per day: 1 Years smoked: 20 Alcohol Alcohol Intake: current Alcohol intake frequency: a few times a week Alcohol type: beer Substance Use Substance use: Never Substance use type: does not use Prental History History 1 Para 1 Hx # Term Pregnancies Multiple births Hx # Pregnancies Ectopic pregnancies AB induced Hx Number of Living Children AB spontaneous Past Pregnancies Del. Date GA/Weeks # Preg Succ Route Wgt Sex Labor Lgth Anesth esia Location [facility] 02/18/13 41 Yes vaginal 2381.36 g Male [facility] Delivery Date: 02/18/13 Last Updated by: Britta Mane Breech baby Vital Signs and Lab Results Vital Signs Most Recent Vital Signs in EMR: Most Recent Vital Signs Temp Pulse Resp BP Pulse Ox 36.9 C 81 18 152/88 H 98 09/04/23 09:13 09/04/23 09:13 09/04/23 09:13 09/04/23 09:13 09/04/23 09:13 Lab Results Blood Type / Crossmatch: Patient ABO/Rh A Positive 09/03/23 Antibody Screen NEGATIVE 09/03/23 Complete Blood Count: White Blood Count 11.30 10^3/uL (4.4-10.8) H 09/03/23 16:43 Red Blood Count 3.79 10^6/uL (3.93-5.22) L 09/03/23 16:43 Hemoglobin 13.2 g/dL (11.2-15.7) 09/03/23 16:43 Hematocrit 38.4 % (36.0-46.0) 09/03/23 16:43 Platelet Count 249 10^3/uL (130-400) 09/03/23 16:43 Complete Metabolic Panel: No Data to Display Liver Function Panel: No Data to Display Coagulation Panel: No Data to Display Cardiac Panel: No Data to Display Arterial Blood Gas: No Data to Display Venous Blood Gas: No Data to Display Pancreas Panel: No Data to Display Thyroid Panel: No Data to Display Infectious Disease: No Data to Display Blood Cultures: No Data to Display Toxicology Panel: No Data to Display Panel: No Data to Display Anesthesia Assessment and Plan Anesthesia History Personal History: PONV Family History: No Family History of Anesthesia Complications Exercise Tolerance Exercise Tolerance: Metabolic Equivalents>4 Pertinent Negatives Pertinent Negatives: No Symptoms of GERD, No Major Cardiovascular Symptoms or Complaints and No Major Pulmonary Symptoms or Complaints Cardiac & Pulmonary Exam Cardiac Exam: Normal S1/S2 Heart Sounds (Lower lung blanco bilaterally coarse) Pulmonary Exam: Clear Bilateral Breath Sounds Implantable Cardiac Device Does patient have a Pacemaker or an ICD?: No Airway Exam Known Difficult Airway: No Mallampati Class: 2 Mouth Opening: Normal (> 3cm) Thyromental Distance: Greater than 3 cm Neck Range of Motion: Full ROM Neck Circumference: Normal Teeth Condition: Normal Dentition ASA Classification ASA Score: ASA 2 Emergency Case?: No NPO Status NPO Status: NPO Clears >2 hours, Solids >8 hours Status Status: Negative HCG Anesthesia Plan Resuscitation Status: Full Code Anesthesia Technique: General Anesthesia Airway Planned: Endotracheal Tube Monitors Used: Standard Monitors
[2023-09-04] MEDS: Bupivacaine 0.25% Pres-Free 30 ML VIAL (12:21)
--- NOTE | 2023-09-04 12:25 | FALL_PTH ---
PATIENT: Jessie Dubon LOC: [facility] U#:[id number] AGE/SX: 38/F ROOM: RE09/04/[address]: Shawna No MD : [id number] BED: DIS: 09/04/2023 SPEC #: [id number] RECD: 09/04/23 13:06 STATUS: MARILUZ REMagdalena #: [id number] MEHRAN: 09/04/23 12:[address]: Shawna No DEPT: Surgical Specimen RECD BY: Noemí Mcdowell ENTERED: 09/04/23 13:07 SP TYPE: Fall OTHR DR: Terrence Elizondo DNP Tissues: 1 - FALLOPIAN TUBE (STERILIZATION) 2 - FALLOPIAN TUBE (STERILIZATION) Procedures: GROSS AND MICRO LEVEL 2 Comments: [id number]
--- NOTE | 2023-09-04 12:55 | W.PM.OP ---
Date of service: 09/04/23 Time of Service: 12:00 Operative Note Operative Note DATE OF PROCEDURE: 09/04/23 PRE-OP DIAGNOSIS: Undesired fertility POST-OP DIAGNOSIS: same PROCEDURE: Laparoscopic Bilateral Salpingectomy SURGEON: Shawna No ASSISTING SURGEON: Laurie Gudino Refer to Anesthesia Record ESTIMATED BLOOD LOSS: 20 PATHOLOGY: other (bilateral tubes) COMPLICATIONS: None Patient was transported to: PACU Patient's condition: stable Indications: Pt desired permanent sterilization. Findings: Normal appearing uterus and tubes. Normal appearing ovaries with a small cyst on the left ovary. Procedure Description: After informed consent was signed the patient was taken to the operating room and given general anesthesia.? SCDs were placed on her legs.? She was prepped and draped in the dorsal lithotomy position in the [facility].? Her bladder was drained of urine prior to arrival in the OR. A speculum was placed into the vagina to expose the cervix and a hulka manipulator was placed into the cervix. The speculum was removed. Gloves were changed and attention was turned to the abdomen. The infraumbilical fold was grasped and injected with 0.25% marcaine with epinephrine. A 5mm incision was made in the infraumbilical fold with the scalpel. A hemostat was used to bluntly dissect the subcuticular layers. The fascia was grasped with david clamps and incised. The incision was extended with blunt pressure. The peritoneum was grasped and incised with metzembaum scissors. The visiport was used to enter the abdomen under direct visualization. Once entrance to the abdominal cavity was confirmed the CO2 was turned on and the abdomen was insufflated. At this time the procedure was halted briefly and the pneumoperitoneum deflated due to the patient developing severely elevated BPs. After the BPs were under control the procedure was continued. Two lateral 5mm ports were then placed under direct visualization. The left tube was identified and followed to the fimbriated end. The tube was grasped and elevated and the mesosalpinx was clamped, cauterized and cut with the ligasure device. The was continued along the length of the tube. The proximal end of the tube was then transected with the ligasure. Good hemostasis was noted. The right tube was then identified and followed to the fimbriated end. The tube was grasped and elevated and the mesosalpinx was clamped, cauterized and cut with the ligasure device. The was continued along the length of the tube. The proximal end of the tube was then transected with the ligasure. Good hemostasis was noted on both sides. The tubes were removed individually through the ports and noted to be intact. The ports were removed. The gas was released from the abdomen. The skin incisions were then closed with 4-0 vicryl. Mastisol and steristrips were placed. The manipulator was removed. The patient was placed back into the supine position.? She was moved to the stretcher and taken to the recovery room in stable condition.
--- NOTE | 2023-09-04 13:23 | W.ANESPOSTOP ---
Postoperative Evaluation Date, Time and Location Date Performed: 09/04/23 Time Performed: : Patient Location: PACU Vital Signs Most Recent Imported Vital Signs: Most Recent Vital Signs Temp Pulse Resp BP Pulse Ox 36.4 C L 72 18 123/80 96 09/04/23 13:16 09/04/23 13:16 09/04/23 13:16 09/04/23 13:16 09/04/23 13:16 Pain Score Most Recent Pain Score: Most Recent Pain Score Pain Level 0 09/04/23 09:13 Assessment Mental Status: Awake (Alert & Oriented to Patient Baseline) Airway and Respiratory Function: Patent airway with normal (patient baseline) respiratory exam Cardiovascular Function: Hemodynamically Stable Hydration Status: Adequately Hydrated Nausea & Vomiting: No Nausea or Vomiting Pain: Pt. Denies Any Pain Peripheral Nerve Block: Patient did not receive a nerve block Teaching Patient Teaching: Advised to seek followup for the following concerns (See explanation) Concerns: Poorly Controlled Hypertension
== END 2023-09-04 14:24 | disposition home or self-care (01) ==
PROVIDERS: PCP Nurse Practitioner Family; Visit Provider Obstetrics & Gynecology
PROC: (CPT 58661; principal; 2023-09-04 10:30)
DX: Z30.2 Encounter for sterilization (principal)
CPT/HCPCS: 58661; 88302; J1100; J1885; J2001; J2250; J2405; J2704; J3010

== ENCOUNTER → 2023-11-04 01:42 | Outpatient (CLI) | payer MEDICAID, SELFPAY ==
--- NOTE | 2023-11-04 07:45 | DI.US_ITS ---
Exam(s) US SOFT TISS ABD WALL/LOW BACK EXAM: US SOFT TISS ABD WALL/LOW BACK CLINICAL HISTORY: ? lipoma,MASS ON BACK, R22.2. TECHNIQUE: Ultrasound was performed using standard protocol. COMPARISON: No exams were available for comparison FINDINGS: Sonographic assessment utilizing grayscale and color Doppler imaging was performed and targeted to th e area of clinical concern. In the area of palpable abnormality in the left upper back, there is a homogeneous fatty echogenicity lesion measuring 5.2 x 1.4 x 4.9 cm, consistent with simple lipoma. No suspicious features. IMPRESSION: 5 x 2 centimeter lipoma corresponding to palpable abnormality. DATA REPOSITORY:
--- NOTE | 2023-11-04 07:45 | DI.MAMMO_ITS ---
Exam(s) MAMMO SCREENING EXAM: MAMMO SCREENING CLINICAL HISTORY: screening,Z12.39,FAMILY H/O BREAST CA,Z80.3 TECHNIQUE: Mammograms were interpreted according to the usual protocol including computer analysis w [address] CAD system, tomosynthesis and C-view imaging. COMPARISON: 2019 FINDINGS: The breasts are composed of heterogeneously dense fibroglandular densities, Breast Density category C . No suspicious masses or suspicious microcalcifications are seen. No skin thickening or abnormal axillary lymph nodes are seen. There has been no significant change from prior exams. IMPRESSION: BI-RADS Category 1, Negative mammogram. Yearly screening mammography is recommended. Breast Density Category C, heterogeneously Dense. The mammogram demonstrates the patient's breast tissue is dense. Dense breast tissue is very common a nd is not abnormal but dense breast tissue can make it harder to find cancer on a mammogram. Also, de nse breast tissue may increase breast cancer risk. This information about the result of the mammogram report was provided to the patient to raise their awareness. Use this report when you speak with the patient about their risks for breast cancer, which includes their family history. At that time, you may recommend additional screening tests (Ultrasound or MRI) as they might be useful based on their r isk. A negative radiographic report should not delay biopsy if a dominant or clinically suspicious mass is present. Up to ten percent of cancers are not identified on mammography. A negative report may reinforce clinical impression. Adenosis and dense breasts may obscure an underlying neoplasm. False positive reports average 6 to 10%.
== END ==
PROVIDERS: PCP Nurse Practitioner Family; Visit Provider Nurse Practitioner Family
DX: R22.2 Localized swelling, mass and lump, trunk (principal); Z12.31 Encounter for screening mammogram for malignant neoplasm of breast; Z80.3 Family history of malignant neoplasm of breast
CPT/HCPCS: 77063; 77067; 76705

== ENCOUNTER 2023-11-04 05:00 | Outpatient (CLI) | payer MEDICAID, SELFPAY ==
[2023-11-04 12:19] LABS: HCT 43.8 % (36.0-46.0); HGB 14.4 g/dL (11.2-15.7); MCH 32.1 pg (27.0-33.0); MCHC 32.9 % (32.0-36.0); MCV 98 fL (80-95); MPV 11.5 fL (8.0-11.0); Platelet Count 336 10^3/uL (130-400); RBC 4.48 10^6/uL (3.93-5.22); RDW-SD 43.4 fL; WBC 10.07 10^3/uL (4.4-10.8)
[2023-11-04 13:11] LABS: Iron 81 ug/dL (50-170)
[2023-11-04 13:23] LABS: ALT 28 U/L (14-59); AST 18 U/L (15-37); Albumin 3.7 g/dL (3.4-5.0); Alkaline Phosphatase 74 U/L (46-116); Anion Gap 8.2 mmol/L (3-11); BUN 10 mg/dL (7-18); Bilirubin, Total 0.4 mg/dL (0.2-1.0); CO2 26.8 mmol/L (21.0-32.0); CREATININE 0.9 mg/dL (0.55-1.02); Calcium 9.5 mg/dL (8.5-10.1); Chloride 105 mmol/L (98-107); Estimated GFR 84.97 (mL/min/1.73m2); Ferritin 264 ng/mL (8-252); Folate 5.1 ng/mL (8.6-20.0); Glucose 100 mg/dL (74-106); Potassium 4.3 mmol/L (3.5-5.1); Sodium 140 mmol/L (136-145); Total Protein 7.6 g/dL (6.4-8.2); Vitamin B12 584 pg/mL (193-986); Vitamin D 25 Total 19.5 ng/mL (30-100)
== END 2023-11-04 05:01 | disposition home or self-care (01) ==
LOC: LOS 05:00
PROVIDERS: PCP Nurse Practitioner Family; Visit Provider Nurse Practitioner Family
DX: D75.89 Other specified diseases of blood and blood-forming organs (principal); R53.83 Other fatigue
CPT/HCPCS: 36415; 80053; 82306; 85027; 82607; 82728; 82746; 83540; 84443

== ENCOUNTER 2023-11-12 15:59 | Outpatient (REF) | payer MEDICAID, SELFPAY ==
--- NOTE | 2023-11-12 15:45 | PAPFT_PTH ---
PATIENT: Jessie Dubon LOC: [facility] U#:[id number] AGE/SX: 38/F ROOM: RE11/12/[address]: Laurie Gudino DO : 1985 BED: DIS: 11/12/2023 SPEC #: [id number] RECD: 11/12/23 17:51 STATUS: MARILUZ REQ #: [id number] MEHRAN: 11/12/23 15:[address]: Laurie Gudino DEPT: [facility] Cytology RECD BY: Noemí Mcdowell ENTERED: 11/12/23 17:52 SP TYPE: PAPFT OTHR DR: Terrence Elizondo DNP Tissues: 1 - CX/ENDOCX FOR PAP SMEARS Procedures: PAP THIN PREP/UVM Screening HPV DNA PROBE Comments: [id number] (HPV 16 & 18/45)
== END 2023-11-12 16:00 | disposition home or self-care (01) ==
LOC: LBN 15:59
PROVIDERS: PCP Nurse Practitioner Family; Visit Provider Obstetrics & Gynecology
DX: Z12.4 Encounter for screening for malignant neoplasm of cervix (principal); R87.610 Atypical squamous cells of undetermined significance on cytologic smear of cervix (ASC-US); Z11.51 Encounter for screening for human papillomavirus (HPV); R87.810 Cervical high risk human papillomavirus (HPV) DNA test positive
CPT/HCPCS: 88142; 87624

== ENCOUNTER 2024-01-16 05:48 | Outpatient (CLI) | payer MEDICAID, SELFPAY ==
[2024-01-16 20:24] LABS: Triglyceride 223 mg/dL (<150)
== END 2024-01-16 05:49 | disposition home or self-care (01) ==
LOC: LOS 05:48
PROVIDERS: PCP Nurse Practitioner Family; Visit Provider Psychiatry & Neurology Neurology
DX: L70.0 Acne vulgaris (principal); Z79.899 Other long term (current) drug therapy
CPT/HCPCS: 36415; 84478

== ENCOUNTER 2024-03-11 08:41 | Day surgery (SDC) | payer MEDICAID, SELFPAY ==
--- NOTE | 2024-03-10 20:30 | W.PREOPHP ---
Assessment and Plan Assessment and plan (1) Lipoma: Status: Acute Assessment and plan: We reviewed the plan for exicision and closure of a left shoulder lipoma. We can proceed as planned History of Present Illness History of Present Illness Chief Complaint: Lipoma Narrative: She is 39 years old, and she is here with a chief complaint of a mass on the backside of her left shoulder. She does not know exactly when it first started, but has been increasing in size quite a bit over the past several weeks. She occasionally has some discomfort, especially if she leans up against it. Overlying skin is always remain normal and healthy, with no drainage or other worrisome features. She is undergone an ultrasound of this already that supports the diagnosis of a simple lipoma PFSH All Active Problems Skin cyst (Acute) Lipoma (Acute) Papanicolaou smear of anus with atypical squamous cells of undetermined significance (ASC-US) (Acute) 10/2023-ASCUS, positive high risk HPV recommend repeat Pap smear 10/2024 Lipoma of back (Acute) Macrocytosis (Acute) Alcohol use disorder in remission (Acute) Snoring (Acute) Fatigue (Acute) Hypertension (Chronic) No meds yet. Severe episode during surgery 09/04/23. Appt with PCP early Oct. Smoker (Acute 12/28/13) Medical History IUD surveillance Mirena IUD placed 10/10/18. 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 Pt experienced episode of significant HTN during procedure needing 4 medications to control it. Tonsillectomy and adenoidectomy (~2001) LUMPECTOMY (~01/2014) FROM TONGUE Excision, Lesion Groin cyst Appendectomy (~04/1998) Family History Mother Personal history of malignant neoplasm BREAST/CERVICAL Cancer Alcohol use disorder Breast cancer Depression Hypertension Father Alcohol use disorder Grandfather Personal history of malignant neoplasm BLADDER/SKIN Heart disease Grandmother Personal history of malignant neoplasm BREAST Other Family history of breast cancer in first degree relative Social History Smoking/Tobacco Use Status: Former Tobacco Use Quit Date: 03/04/24 Tobacco: How many years used: 20 Quit status: considering quitting Second Hand Exposure: Yes Smoking risk assessment performed?: Yes Alcohol Intake: current Alcohol Intake frequency: a few times a week Alcohol type: beer Drug use: Current Sobriety Substance use type: prescription drug Counseling given: No Details: last ETOH 1929, 4 beers. Adopted: No Household members: children Housing: house Number of Children: 1 Do you need help understanding health information?: Rarely current occupation: [employer] Sexually active: Yes Do you think of yourself as: straight/heterosexual Current gender identity: female How often do you talk on the phone with friends or family?: three or more times per week How often do you get together with friends or relatives?: three or more times per week How often do you attend scientology or confucianism services?: decline to answer Do you belong to any clubs or organized social groups?: yes Panel score (0-1 are the most socially isolated patients): 2 Duration: < 15 minutes/day Frequency: daily Chelo/Zoroastrian: Non adventist Special chelo needs: No Seatbelt use: sometimes Helmet use: Yes Helmet use: always Drive intox or ride w/intox public transit bus driver: No Firearms in home: Yes Firearms unloaded and locked: Yes Do you feel safe at home: Yes Do you feel safe in your relationship?: Yes Victim of physical abuse: No Victim of emotional abuse: No Victim of sexual abuse: No Would you like helpful sources: No Female Reproductive History Menstrual Age of Menarche: 14 control method: progestin IUCD History History 1 Para 1 Hx # Term Pregnancies Multiple births Hx # Pregnancies Ectopic pregnancies AB induced Hx Number of Living Children AB spontaneous Past Pregnancies Del. Date GA/Weeks # Preg Succ Route Wgt Sex Labor Lgth Anesthesia Location [facility] 02/18/13 41 Yes vaginal 5 lb 4 oz Male [facility] - Dr. Keyes Delivery Date: 02/18/13 Last Updated by: Shawna No MD Breech baby - forceps delivery Meds Allergies and Home Medications Allergies Allergy/AdvReac Type Severity Reaction Status Date / Time tetanus and diphtheria Allergy Severe Trouble Verified 03/11/24 09:02 toxoids breathing [tetanus & diphtheria toxoids] BCG (Bacillus Allergy Unknown ? REACTION Verified 03/11/24 09:02 [place]-Vadim) vacc [From BCG Jennifer Vaccine] hepatitis B virus vaccine Allergy Unknown ? REACTION Verified 03/11/24 09:02 ibuprofen Allergy Unknown other Verified 03/11/24 09:02 influenza virus vaccine, Allergy Unknown ? REACTION Verified 03/11/24 09:02 specific [influenza virus vacc,specific] mumps immune globulin Allergy Unknown ? REACTION Verified 03/11/24 09:02 Pertussis Vaccines Allergy Other (See Verified 03/11/24 09:02 Comment) Home Medications Medication Instructions Recorded Confirmed Type levonorgestrel 21 mcg/24 hr (up to 1 device intrauterine ONCE 11/12/23 03/11/24 History 8 years) 52 mg intrauterine device (Mirena) cholecalciferol (vitamin D3) 25 25 mcg PO DAILY 11/26/23 03/11/24 History mcg (1,000 unit) capsule bupropion HCl 300 mg 24 hr tablet, 300 mg PO QAM #90 tabs 01/07/24 03/11/24 Rx extended release nicotine 14 mg/24 hr daily 1 patch transdermal Q24H #28 ea 01/07/24 03/11/24 Rx transdermal patch (Nicoderm CQ) nicotine 21 mg/24 hr daily 1 patch transdermal Q24H #28 ea 01/07/24 03/11/24 Rx transdermal patch (Nicoderm CQ) folic acid 1 mg tablet 1 mg PO DAILY 01/29/24 03/11/24 History Exam Const General: cooperative, healthy appearing and not in acute distress Neck Neck: normal visual inspection, no lymphadenopathy and supple Thyroid: thyroid normal Resp Effort & Inspection: normal respiratory effort Auscultation: clear to auscultation bilaterally Cardio Jugular venous pressure: no JVD Rate: regular rate Rhythm: regular rhythm Heart Sounds: S1 normal and S2 normal Skin Other: Rubbery slightly mobile mass on the left posterior shoulder Neuro General: patient alert, patient awake and patient oriented x3 Psych Appearance: grossly normal
--- NOTE | 2024-03-10 20:31 | W.PM.DSUDISC ---
Date of service: 03/11/24 Time of Service: 11:27 Discharge Plan Disposition Patient Disposition: Home Condition: Good Discharge Details Reason For Visit: lipoma excision Attending Provider: Alexander Flood Primary Care Provider: Terrence Moss Home Meds and New Rx's Prescriptions: New tramadol 50 mg tablet 50 mg PO BID PRNQty: 6 0RF Rx Instructions: Take 1 tablet by mouth if needed for severe pain. Continued cholecalciferol (vitamin D3) 25 mcg (1,000 unit) capsule 25 mcg PO DAILY folic acid 1 mg tablet 1 mg PO DAILY Mirena 21 mcg/24 hours (8 yrs) 52 mg intrauterine device 1 device intrauterine ONCE Rx Instructions: as a single dose bupropion HCl 300 mg tablet extended release 24 hr 300 mg PO QAM Qty: 90 4RF nicotine [Nicoderm CQ] 21 mg/24 hr patch 24 hour 1 patch transdermal Q24H Qty: 28 0RF nicotine [Nicoderm CQ] 14 mg/24 hr patch 24 hour 1 patch transdermal Q24H Qty: 28 0RF Discharge Instructions Instructions: Lipoma Additional Instructions: Jessie, you did great in the operating room today, notable was a comfortable experience. Like we talked about afterwards, we were able to remove all of this lipoma without much difficulty. As you may or may not recall, the overall size of it was about 5 cm in its biggest dimension. This required a fair amount of dissection under the skin. He may have quite a bit of bruising in the days to come. Please do not be alarmed by that if you notice it. Similarly, you might have some swelling in the area as that pocket. With some fluid. I did my best to keep that stitch down nice and flat for good cosmetic appearance, but sometimes in the early days to follow fluid accumulating in the area can be a little problematic. I would encourage you to use some ice packs over the area to help with pain after surgery. I did provide a prescription for a stronger pain medication if the Tylenol and ibuprofen are not enough to keep you comfortable. I would like you to keep the wound dressed for the next 24 hours. If the dressing becomes saturated, he can replace it with a large Band-Aid. If it remains dry for the next 24 hours, can be removed tomorrow and left open to air so long as that is comfortable for you. If you find your shirt or bra straps to be a little bit irritating over the area, large Band-Aids will be useful. As you will see under the bandage, there are some small Steri-Strips over the incision please leave these in place. If they fall off in the shower, that is okay. If they are still in place when you come into the office, we will remove them at that point. I would like you to wash the incision with warm soapy water at least 1 time per day. If he can do it twice a day, that would be even better. Try not to submerge the incision underwater in lakes, swimming pools, or hot tubs for the next 72 hours. If you want to go in the water after that, it is fine to have it splashed, and occasionally underwater, but please rinse it off with some fresh water immediately afterwards. If you have any questions in the meantime, please do not hesitate to call or ask at any point. 1. Resume all of your regular medications. 2. Alternate heating pads and ice packs for 15-minute intervals as needed for pain. 3. Alternate [id number] Tylenol and ibuprofen every 6 for the first 2 days. Then use as needed. Use the tramadol if this is insufficient 4. Leave bandage in place for 24 hours, then remove. 5. Shower with warm soapy water. Pat dry. Use a bandaid if needed to protect your clothing. 6. No soaking or tub baths until I see you in the office. 7. No heavy lifting until I see you in the office. 8. Call the office (or go directly to the emergency room after hours) if you notice any of the following: Develop chills (warm to touch), or if you have a thermometer and your temperature is above 101 Difficulty breathing or difficultly swallowing Persistent vomiting Any bleeding ? exceeding one tablespoon 9. Call your physician if the site where your intravenous was started becomes red, swollen, painful, and warm to touch. Stand Alone Forms: Anesthesia Discharge Inst., Yanet Cantor (DSU) Referrals: Alexander Flood MD [ [facility] STAFF PHYSICIAN] - 03/24/24 2:30 pm Activity:: Activity as Tolerated Remove Dressings/Wound Care:: 24 hours Shower/Bathe:: 24 hours Diet:: As Tolerated Discharge Orders Discharge Orders: Discharge Order (Routine); Ordered 03/10/24 Ordered By: Alexander Flood DS: Diagnosis Discharge Diagnosis (1) Lipoma: Status: Acute Asessment and Plan: Routine postoperative follow-up
--- NOTE | 2024-03-10 20:35 | W.PM.OP ---
Date of service: 03/11/24 Time of Service: 11:33 Operative Note Operative Note DATE OF PROCEDURE: 03/11/24 PRE-OP DIAGNOSIS: Left shoulder lipoma PROCEDURE: Excision and primary closure of left shoulder lipoma SURGEON: Alexander Flood ANESTHESIA TYPE: Local By Surgeon and General:No Airway Refer to Anesthesia Record ESTIMATED BLOOD LOSS: 10 PATHOLOGY: other (Left shoulder lipoma) COMPLICATIONS: None Patient was transported to: PACU Patient's condition: stable Indications: Jessie is a 39-year-old woman with a painful left shoulder lipoma Findings: Soft tissue mass over the left scapula consistent with a lipoma Procedure Description: Patient was brought to the operating room, and assisted to the right lateral decubitus position. After the initiation of anesthesia, I prepped and draped the left shoulder in the usual fashion. I established a generous field block using local anesthetic. Next, I made a longitudinal incision over the central portion of the lesion. Skin incision was about 5 cm long. I dissected down through the skin to the subcutaneous fat. Here, I encountered an encapsulated portion of fat that seem consistent with a lipoma. Next, I carefully dissected the surrounding soft tissues away. There were some serpiginous characteristics of a lipoma. Great care was taken to ensure that it was excised in its entirety. I dissected down onto the superficial fascia of the left shoulder. Again, the soft tissue was away. Local anesthetic was used during the dissection to assist with patient comfort. Once the mass was completely excised, it was passed off the field as left shoulder lipoma. Wound cavity was about 5 cm long by about 4 cm wide by about 3 cm deep. Small amount of electrocautery was used to control 2 foci of minimal bleeding. At that point, the wound was hemostatic. Deep tissues were closed with interrupted Vicryl suture, and the skin was approximated with interrupted Monocryl's. Steri-Strips were applied, and a bandage was used over top. The patient was then transferred to the recovery unit.
[2024-03-11 08:52] VITALS: BP 143/91; PULSE 81; RESP 20; TEMP 36.5; O2SAT 98
[2024-03-11] MEDS: Acetaminophen 500 MG TAB 1000 MG PO (09:05)
[2024-03-11] MEDS: Gabapentin 300 MG CAP 600 MG PO (09:06)
[2024-03-11] MEDS: Celecoxib 200 MG CAP PO (09:06)
[2024-03-11] MEDS: Lactated Ringers 1,000 ML 80 ML IV (09:21)
--- NOTE | 2024-03-11 10:01 | ANES.PREOP_ITS ---
General Info Date of Service Date Performed: 03/11/24 Height: 5 ft 2 in Weight: 67.5 kg Body Mass Index (BMI): 27.2 Surgical Procedure: Operation Date: 03/11/24 10:25 Proposed Procedure Side Surgeon p Excision and Primary Closure Lipoma Shoulder Left Alexander Flood MD Meds Allergies and Home Medications Allergies Allergy/AdvReac Type Severity Reaction Status Date / Time tetanus and diphtheria Allergy Severe Trouble Verified 03/11/24 09:02 toxoids breathing [tetanus & diphtheria toxoids] BCG (Bacillus Allergy Unknown ? REACTION Verified 03/11/24 09:02 [place]-Vadim) vacc [From BCG Jennifer Vaccine] hepatitis B virus vaccine Allergy Unknown ? REACTION Verified 03/11/24 09:02 ibuprofen Allergy Unknown other Verified 03/11/24 09:02 influenza virus vaccine, Allergy Unknown ? REACTION Verified 03/11/24 09:02 specific [influenza virus vacc,specific] mumps immune globulin Allergy Unknown ? REACTION Verified 03/11/24 09:02 Pertussis Vaccines Allergy Other (See Verified 03/11/24 09:02 Comment) Home Medication Medication Instructions Recorded levonorgestrel 21 mcg/24 hr (up to 1 device intrauterine ONCE 11/12/23 8 years) 52 mg intrauterine device (Mirena) cholecalciferol (vitamin D3) 25 25 mcg PO DAILY 11/26/23 mcg (1,000 unit) capsule bupropion HCl 300 mg 24 hr tablet, 300 mg PO QAM #90 tabs 01/07/24 extended release nicotine 14 mg/24 hr daily 1 patch transdermal Q24H #28 ea 01/07/24 transdermal patch (Nicoderm CQ) nicotine 21 mg/24 hr daily 1 patch transdermal Q24H #28 ea 01/07/24 transdermal patch (Nicoderm CQ) folic acid 1 mg tablet 1 mg PO DAILY 01/29/24 Current Visit Medications: Current Medications Generic Name Dose Route Start Last Admin Trade Name Freq PRN Reason Stop Dose Admin Acetaminophen 1,000 mg 03/11/24 06:00 03/11/24 09:05 Acetaminophen 500 Mg Tab PO 03/11/24 23:59 1,000 mg PREOP TORRIE Administration Celecoxib 200 mg 03/11/24 06:00 03/11/24 09:06 Celecoxib 200 Mg Cap PO 03/11/24 23:59 200 mg PREOP TORRIE Administration Gabapentin 600 mg 03/11/24 06:00 03/11/24 09:06 Gabapentin 300 Mg Cap PO 03/11/24 23:59 600 mg PREOP TORRIE Administration Hydromorphone HCl 0.2 mg 03/10/24 20:36 Hydromorphone 2 Mg/Ml Syr IVP 04/09/24 20:35 Q1H PRN PRN Ringer's Solution 1,000 mls @ 80 mls/hr 03/11/24 06:00 03/11/24 09:21 IV 03/11/24 23:59 80 mls/hr INFUSION TORRIE Administration IV Miscellaneous Supplies 1 each 03/11/24 06:00 Iv Access IV 03/11/24 23:59 DIRECTED TORRIE Sodium Chloride 0 ml 03/11/24 06:00 Normal Saline Flush 10 Ml Syr IV 03/11/24 23:59 PRN PRN Sodium Chloride 0 ml 03/11/24 06:00 Normal Saline 10 Ml Vial IJ 03/11/24 23:59 DIRECTED PRN Sterile Water 0 ml 03/11/24 06:00 Water,Injection,Sterile 10 Ml Vial IJ 03/11/24 23:59 DIRECTED PRN Tramadol HCl 50 mg 03/10/24 20:36 Tramadol 50 Mg Tab PO 04/09/24 20:35 Q6H PRN PRN Pain PFSH Active Problems Active Problems: Problem Status Onset Code Skin cyst L72.9 Lipoma D17.9 Papanicolaou smear of anus with atypical squamous cells of undetermined significance (ASC-US) R85.610 Lipoma of back D17.1 Macrocytosis D75.89 Alcohol use disorder in remission F10.91 Snoring R06.83 Fatigue R53.83 Hypertension I10 Smoker 12/28/13 F17.200 Medical History Medical History IUD surveillance Mirena IUD placed 10/10/18. 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 Pt experienced episode of significant HTN during procedure needing 4 medications to control it. Tonsillectomy and adenoidectomy (~2001) LUMPECTOMY (~01/2014) FROM TONGUE Excision, Lesion Groin cyst Appendectomy (~04/1998) Tobacco Smoking/Tobacco Use Status: Former Tobacco Use Passive smoking exposure: Yes Second hand exposure: Yes Alcohol Alcohol Intake: current Alcohol intake frequency: a few times a week Alcohol type: beer Substance Use Substance use: Current Sobriety Substance use type: prescription drug Details: last ETOH 193, 4 beers. Prental History History 1 Para 1 Hx # Term Pregnancies Multiple births Hx # Pregnancies Ectopic pregnancies AB induced Hx Number of Living Children AB spontaneous Past Pregnancies Del. Date GA/Weeks # Preg Succ Route Wgt Sex Labor Lgth Anesth esia Location Prov [facility] 02/18/13 41 Yes vaginal 2381.36 g Male [facility] - Dr. Keyes Delivery Date: 02/18/13 Last Updated by: Shawna No MD Breech baby - forceps delivery Vital Signs and Lab Results Vital Signs Most Recent Vital Signs in EMR: Most Recent Vital Signs Temp Pulse Resp BP Pulse Ox 36.5 C 81 20 143/91 H 98 03/11/24 08:52 03/11/24 08:52 03/11/24 08:52 03/11/24 08:52 03/11/24 08:52 Point of Care Results Point of Care Results: POC- Test(urine) Negative 03/11/24 08:55 Lab Results Blood Type / Crossmatch: No Data to Display Complete Blood Count: No Data to Display Complete Metabolic Panel: No Data to Display Liver Function Panel: No Data to Display Coagulation Panel: No Data to Display Cardiac Panel: No Data to Display Arterial Blood Gas: No Data to Display Venous Blood Gas: No Data to Display Pancreas Panel: No Data to Display Thyroid Panel: No Data to Display Infectious Disease: No Data to Display Blood Cultures: No Data to Display Toxicology Panel: No Data to Display Panel: No Data to Display Anesthesia Assessment and Plan Anesthesia History Personal History: PONV Family History: No Family History of Anesthesia Complications Exercise Tolerance Exercise Tolerance: Metabolic Equivalents>4 Pertinent Negatives Pertinent Negatives: No Symptoms of GERD, No Major Cardiovascular Symptoms or Complaints, No Major Pulmonary Symptoms or Complaints and No History of CVA/TIA Cardiac & Pulmonary Exam Cardiac Exam: Normal S1/S2 Heart Sounds Pulmonary Exam: Clear Bilateral Breath Sounds Implantable Cardiac Device Does patient have a Pacemaker or an ICD?: No Airway Exam Known Difficult Airway: No Mallampati Class: 3 Mouth Opening: Normal (> 3cm) Thyromental Distance: Greater than 3 cm Neck Range of Motion: Full ROM Neck Circumference: Normal Teeth Condition: Normal Dentition ASA Classification ASA Score: ASA 2 Emergency Case?: No NPO Status NPO Status: NPO Clears >2 hours, Solids >8 hours Status Status: Negative HCG Anesthesia Plan Resuscitation Status: Full Code Anesthesia Technique: General Anesthesia Airway Planned: Natural Airway Monitors Used: Standard Monitors Preoperative Comments:: Reviewed prior anesthetic record; noted multi-agent beta-blockade and cardene for blood pressure control. Reports last anesthetic (salp) was the best shes had for PONV.
[2024-03-11 10:21] VITALS: BMI 27.2
[2024-03-11] MEDS: Bupivacaine 0.25% Pres-Free W/EPI 30 ML VIAL (10:41)
--- NOTE | 2024-03-11 10:54 | SOFT_PTH ---
PATIENT: Jessie Dubon LOC: [facility] U#:[id number] AGE/SX: 39/F ROOM: RE03/11/[address]: Alexander Flood MD : 1985 BED: DIS: 03/11/2024 SPEC #: [id number] RECD: 03/11/24 13:20 STATUS: MARILUZ REQ #: [id number] MEHRAN: 03/11/24 10:[address]: Alexander Flood DEPT: Surgical Specimen RECD BY: Noemí Mcdowell ENTERED: 03/11/24 13:21 SP TYPE: SOFT OTHR DR: Terrence Elizondo DNP Tissues: 1 - SOFT TISSUE MISC (INC. LIPOMA) Procedures: GROSS AND MICRO LEVEL 3 Comments: [id number]
[2024-03-11 11:18] VITALS: BP 128/78; PULSE 88; RESP 16; TEMP 35.9; O2SAT 99
--- NOTE | 2024-03-11 11:55 | W.ANESPOSTOP ---
Postoperative Evaluation Date, Time and Location Date Performed: 03/11/24 Time Performed: 11:20 Patient Location: Day Surgery Unit Vital Signs Most Recent Imported Vital Signs: Most Recent Vital Signs Temp Pulse Resp BP Pulse Ox 35.9 C L 88 16 128/78 99 03/11/24 11:18 03/11/24 11:18 03/11/24 11:18 03/11/24 11:18 03/11/24 11:18 Pain Score Most Recent Pain Score: Most Recent Pain Score Pain Level 0 03/11/24 11:18 Assessment Mental Status: Awake (Alert & Oriented to Patient Baseline) Airway and Respiratory Function: Patent airway with normal (patient baseline) respiratory exam Cardiovascular Function: Hemodynamically Stable Hydration Status: Adequately Hydrated Nausea & Vomiting: No Nausea or Vomiting Pain: Pt. Denies Any Pain Peripheral Nerve Block: Patient did not receive a nerve block
[2024-03-11 12:00] VITALS: BP 131/89; PULSE 71; RESP 16; TEMP 36.2; O2SAT 100
== END 2024-03-11 12:07 | disposition home or self-care (01) ==
LOC: SUR 08:41
PROVIDERS: PCP Nurse Practitioner Family; Visit Provider Surgery
PROC: (CPT 21931; principal; 2024-03-11 10:15)
DX: D17.1 Benign lipomatous neoplasm of skin and subcutaneous tissue of trunk (principal)
CPT/HCPCS: 21931; 81025; 88304; J2001; J2405; J2704

== ENCOUNTER 2024-11-06 00:28 | Outpatient (CLI) | payer MEDICAID, SELFPAY ==
--- NOTE | 2024-11-06 07:00 | DI.US_ITS ---
Exam(s) US PELVIS TRANSVAGINAL EXAM: US PELVIS TRANSVAGINAL CLINICAL HISTORY: painful menses with IUD in place,oligomenorrhea,iud surveillance TECHNIQUE: Transabdominal and transvaginal imaging was performed using standard protocol. COMPARISON: US US PELVIS TRANSVAGINAL from 11/23/2020 FINDINGS: The bladder is unremarkable as visualized. UTERUS: Anteverted. 7.5 x 3.7 x 4.8 cm Endometrium: 5 mm. IUD in appropriate position. Myometrium: Anterior fibroid measuring 1.7 cm. Cervix: Unremarkable. OVARIES: Right: Cyst or mass: None. Left: Cyst or mass: None. DOPPLER: Color: Symmetric and uniform flow to both ovaries. No hyperemia. CUL-DE-SAC: Free fluid: None. IMPRESSION: 1. IUD in place. Small anterior uterine fibroid. 2. Unremarkable bilateral ovaries. DATA REPOSITORY:
== END 2024-11-06 00:48 ==
LOC: DI 00:28
PROVIDERS: PCP Nurse Practitioner Family; Visit Provider Obstetrics & Gynecology Gynecology
DX: Z30.431 Encounter for routine checking of intrauterine contraceptive device
CPT/HCPCS: 76830; 76856

== ENCOUNTER 2024-11-17 11:00 | Outpatient (CLI) | payer MEDICAID, SELFPAY ==
[2024-11-17 12:29] LABS: Calculated LDL 163 mg/dL (<100); Cholesterol 267 mg/dL (<200); HDL Cholesterol 67 mg/dL (40-60); Triglyceride 189 mg/dL (<150)
== END 2024-11-17 11:01 | disposition home or self-care (01) ==
LOC: LBO 11:01
PROVIDERS: PCP Nurse Practitioner Family; Visit Provider Obstetrics & Gynecology Gynecology
DX: I10 Essential (primary) hypertension (principal)
CPT/HCPCS: 36415; 80061

== ENCOUNTER 2024-12-21 16:39 | Outpatient (REF) | payer MEDICAID, SELFPAY ==
--- NOTE | 2024-12-21 16:10 | PAPFT_PTH ---
PATIENT: Jessie Dubon LOC: [facility] U#:[id number] AGE/SX: 39/F ROOM: RE12/21/[address]: Shawna No MD : 1985 BED: DIS: 12/21/2024 SPEC #: [id number] RECD: 12/22/24 12:46 STATUS: MARILUZ REQ #: [id number] MEHRAN: 12/21/24 16:[address]: Shawna No DEPT: [facility] Cytology RECD BY: Noemí Mcdowell ENTERED: 12/22/24 12:46 SP TYPE: PAPFT OTHR DR: Terrence Elizondo DNP Tissues: 1 - CX/ENDOCX FOR PAP SMEARS Procedures: PAP THIN PREP/[facility] Screening HPV DNA PROBE Comments: [id number] 9HPV 16 & 18/45)
== END 2024-12-21 16:40 | disposition home or self-care (01) ==
LOC: LBN 16:39
PROVIDERS: PCP Nurse Practitioner Family; Visit Provider Obstetrics & Gynecology
DX: Z12.4 Encounter for screening for malignant neoplasm of cervix (principal); N76.0 Acute vaginitis
CPT/HCPCS: 88142; 87624

== ENCOUNTER 2025-03-05 00:27 | Outpatient (CLI) | payer BC, MEDICAID, SELFPAY ==
--- NOTE | 2025-03-05 08:00 | DI.MAMMO_ITS ---
Exam(s) MAMMO SCREENING EXAM: MAMMO SCREENING CLINICAL HISTORY: screening,Z12.39,FAMILY H/O BREAST CA,Z85.3. TECHNIQUE: Bilateral full field digital CC and MLO mammographic images were obtained with 3D tomosynthesis and utilizing computer aided detection (CAD). COMPARISON: Prior mammograms were reviewed. FINDINGS: There has been no significant change in the appearance and distribution of the fibroglandular tissue. There are no new spiculated masses nor malignant appearing microcalcification groups. There is no significant architectural distortion nor skin thickening-retraction. IMPRESSION: No radiographic evidence of malignancy. BI-RADS Category 1 - Negative Breast Density - Category C - The breast are heterogeneously dense, which may obscure small masses. Breast density Category C or D implies that the patient has dense breast tissue. Dense breast tissue can make it harder to find cancer on a mammogram. Dense breast tissue is also associated with an increased risk of breast cancer. This information about the result of the mammogram report was provided to the patient to raise their awareness. Use this report when you speak with the patient about their risks for breast cancer, which includes their family history. At that time, you may recommend additional screening tests (Ultrasound or MRI) as these tests may add significant information. A negative radiographic report should not delay biopsy if a dominant or clinically suspicious mass is present. Up to ten percent of cancers are not identified on mammography. A negative report may reinforce clinical impression. Adenosis and dense breasts may obscure an underlying neoplasm. False positive reports average 6 to 10%. Patient will receive a letter notifying them of these results.
== END 2025-03-05 00:47 ==
LOC: DI 00:27
PROVIDERS: PCP Nurse Practitioner Family; Visit Provider Nurse Practitioner Family
DX: Z12.31 Encounter for screening mammogram for malignant neoplasm of breast (principal); Z80.3 Family history of malignant neoplasm of breast; R92.333 Mammographic heterogeneous density, bilateral breasts
CPT/HCPCS: 77063; 77067